=== PATIENT | female | born 1970 | race Caucasian/White ===

== ENCOUNTER 2016-12-27 19:20 | Emergency (ER) | payer MEDICAID ==
--- NOTE | 2016-12-27 19:45 | Emergency Department Record ---
History of Present Illness - General Chief complaint: Flu Like Symptoms Stated complaint: COUGH,BODY ACHE Time Seen by Provider: 12/27/16 19:40 Source: Patient, Family Mode of Arrival: Ambulatory Limitations: No limitations - History of Present Illness Initial comments: 46 yo female presents with sore throat, cough, fever 100.9, congestion. The onset of the symptoms was today. No nausea, vomiting or diarrhea. She has aches all over as well. She is not a smoker. She did not have a flu shot. She has been exposed to many sick people throat her work at [employer]. PCP is Jackelyn Naik in the [facility]. She was sick 2 weeks ago with cough and congestion that resolved. Onset/Timin -: Hour(s) Location: Generalized Consistency: Constant Improves with: None Worsens with: None Associated Symptoms: Chest pain, Fever/chills, Headaches - Macy Coma Scale Eye Response: (4) Open spontaneously Motor Response: (6) Obeys commands Verbal Response: (5) Oriented Macy Total: 15 - Symptoms of Stroke Symptoms of stroke: Dizziness - Related Data Previous Rx's Medication Instructions Recorded Clindamycin HCl [Cleocin HCl] 300 mg PO TID #21 capsule 12/27/16 Allergies Allergy/AdvReac Type Severity Reaction Status Date / Time Penicillins Allergy Unknown PT UNSURE Verified 12/27/16 19:33 OF REACTION bee stings AdvReac Intermediate SWELLING Uncoded 12/27/16 19:33 (GENERAL) Travel Screening - Travel/Exposure Within Last 30 Days Have you traveled within the last 30 days?: No - Travel/Exposure Within Last Year Have you traveled outside the [place] in the last year?: No - Additonal Travel Details Have you been exposed to anyone with a communicable illness?: No - Travel Symptoms Symptom Screening: None Review of Systems Constitutional: Reports: Chills, Fever, Malaise Eyes: Denies: Eye discharge, Eye pain, Photophobia, Vision change ENT: Reports: Congestion, Throat pain. Denies: Ear pain Respiratory: Reports: Cough. Denies: Hemoptysis, Stridor, Wheezes Cardiovascular: Reports: Other (body aches all over). Denies: Dyspnea on exertion, Edema, Palpitations, Syncope Endocrine: Reports: Fatigue Gastrointestinal: Reports: As per HPI. Denies: Abdominal pain, Constipation, Diarrhea, Hematemesis, Hematochezia, Melena, Nausea, Vomiting Genitourinary: Denies: Dysuria, Frequency, Urgency Musculoskeletal: Reports: Arthralgia, Myalgia. Denies: Joint swelling, Neck pain Skin: Denies: Bruising, Change in color, Rash Neurological: Reports: Headache. Denies: Confusion Psychiatric: Denies: Anxiety Hematological/Lymphatic: Denies: Blood Clots, Easy bleeding, Easy bruising, Swollen glands Past Medical History - SOCIAL HISTORY Smoking Status: Never smoker - RESPIRATORY Hx Respiratory Disorders: No - CARDIOVASCULAR Hx Cardio Disorders: Yes Hx Hypertension: Yes - NEURO Hx Neuro Disorders: Yes Hx Headaches: Yes (Migraines) - GI Hx GI Disorders: No - Hx Genitourinary Disorders: No - ENDOCRINE Hx Endocrine Disorders: No - MUSCULOSKELETAL Hx Musculoskeletal Disorders: No - PSYCH Hx Psych Problems: No - HEMATOLOGY/ONCOLOGY Hx Hematology/Oncology Disorders: No Family Medical History Any Significant Family History?: No Hx Cancer: Father, Mother, Grandparents Hx Heart Disease: Father, Grandparents Physical Exam - General General Appearance: Alert, Oriented x3, Cooperative, No acute distress Limitations: No limitations - Head Head exam: Normal inspection - Eye Eye exam: Normal appearance, PERRL. negative: Conjunctival injection, Periorbital swelling - ENT ENT exam: Mucous membranes moist, TM's normal bilaterally. negative: Normal exam, Normal orophraynx Ear exam: Normal external inspection. negative: External canal tenderness Nasal Exam: Discharge (greenish) Mouth exam: Normal external inspection, Tongue normal Teeth exam: Normal inspection. negative: Dental caries Throat exam: Tonsillar erythema, Tonsillomegaly. negative: Normal inspection, Tonsillar exudate, R peritonsillar mass, L peritonsillar mass - Neck Neck exam: Normal inspection, Full ROM, Lymphadenopathy (anterior upper cervical , tender but small soft and mobile), Tenderness. negative: Meningismus - Respiratory Respiratory exam: Normal lung sounds bilaterally. negative: Respiratory distress - Cardiovascular Cardiovascular Exam: Regular rate, Normal rhythm, Normal heart sounds - GI/Abdominal GI/Abdominal exam: Soft. negative: Distended, Guarding, Rigid - Rectal Rectal exam: Deferred - exam: Deferred - Extremities Extremities exam: Normal inspection, Full ROM, Normal capillary refill. negative: Tenderness - Back Back exam: Reports: Normal inspection, Full ROM. Denies: CVA tenderness (R), CVA tenderness (L), Muscle spasm, Rash noted, Tenderness - Neurological Neurological exam: Alert, Normal gait, Oriented X3 - Psychiatric Psychiatric exam: Normal affect, Normal mood - Skin Skin exam: Dry, Intact, Normal color, Warm. negative: Abrasion, Cyanosis, Diaphoretic, Erythema Course Vital Signs 12/27/16 19:27 Temperature 98.7 F Pulse Rate [ 113 H Pulse Ox Probe] Respiratory 20 Rate Blood Pressure 144/76 [Left Arm] Pulse Ox 97 - Reevaluation(s) Reevaluation #1: The Influenza and Strep were negative With her 100.9 fever prior to arrival, erthematous and swollen tonsils she will be treated for tonsillitis 12/27/16 19:58 Reevaluation #2: Note: The patient requests no narcotics 12/27/16 20:02 Disposition Disposition: Discharge Clinical Impression: Tonsillitis Disposition: Home, Self-Care Condition: (1) Good Instructions: Tonsillitis (ED) Additional Instructions: Rest and stay well hydrated Stay home if you have a fever Clindamycin 3 times daily for one week Call your doctor for a recheck in the next 2 days if not better Return to the ER if worse Tylenol as directed for your body aches. Prescriptions: Clindamycin HCl [Cleocin HCl] 300 mg PO TID #21 capsule Forms: Patient Portal Access Time of Disposition: 20:03
[2016-12-27 19:53] LABS: STREP A SCREEN NEGATIVE (NEGATIVE)
[2016-12-27] MEDS ORDERED: DEXAMETHASONE SOD PHOSPHATE 10MG/ML VIAL PO ONE (19:53)
[2016-12-27] MEDS ORDERED: ACETAMINOPHEN 500 MG TABLET PO ONE (19:54)
[2016-12-27 19:55] LABS: INFLUENZA A NEGATIVE (NEGATIVE); INFLUENZA B NEGATIVE (NEGATIVE)
[2016-12-27] MEDS ORDERED: CLINDAMYCIN 150 MG CAP PO ONE (19:59)
== END 2016-12-27 20:14 | disposition home or self-care (01) ==
LOC: ER 19:20
DX: J03.90 Acute tonsillitis, unspecified (principal); R42 Dizziness and giddiness
CPT/HCPCS: 87880; 87400; J1100; 99282

== ENCOUNTER 2017-06-22 18:21 | Emergency (ER) | payer MEDICAID ==
[2017-06-22] MEDS ORDERED: ONDANSETRON HCL IV 4 MG/2 ML VIAL IVP ONE (18:51)
--- NOTE | 2017-06-22 18:56 | Emergency Department Record ---
History of Present Illness - General Chief Complaint: Abdominal Pain Stated Complaint: ABD PAIN/FEVER/NAUSEA Source: Patient Mode of Arrival: Ambulatory Limitations: No limitations - History of Present Illness Initial Comments: 46 yo female presents to ED with a CC of fever, dysuria, nausea, and mild, diffuse abdominal pain symptoms. Patient reports that her symptoms have been intermittent for the past several days, reports that she has a "gallstone the size of a ping-pong ball" that she is going to see Dr. Poon for next week. Patient denies cough, sore throat, or significant flank pain symptoms. Patient denies health problems other than HTN. MD Complaint: Abdominal pain Onset/Timin -: Days(s) Location: Diffuse Severity: Moderate Quality: Dull, Other Consistency: Constant Improves With: Nothing Worsens With: Nothing Associated Symptoms: Dysuria, Nausea - Related Data Patient : No Previous Rx's Medication Instructions Recorded Azithromycin [Zithromax] 250 mg PO DAILY #4 tab 06/22/17 Allergies Allergy/AdvReac Type Severity Reaction Status Date / Time Penicillins Allergy Unknown PT UNSURE Verified 06/22/17 18:35 OF REACTION bee stings AdvReac Intermediate SWELLING Uncoded 12/27/16 19:33 (GENERAL) opioids AdvReac pt states Uncoded 12/27/16 20:04 recovering addict. Travel Screening - Travel/Exposure Within Last 30 Days Have you traveled within the last 30 days?: No - Travel/Exposure Within Last Year Have you traveled outside the [place] in the last year?: No - Additonal Travel Details Have you been exposed to anyone with a communicable illness?: No - Travel Symptoms Symptom Screening: None Review of Systems Constitutional: Reports: Chills, Fever. Denies: Malaise, Night sweats Eyes: Denies: Eye discharge, Eye pain ENT: Denies: Congestion, Ear pain, Epistaxis Respiratory: Denies: Cough, Dyspnea Cardiovascular: Denies: Chest pain, Dyspnea on exertion Endocrine: Denies: Fatigue, Heat or cold intolerance Gastrointestinal: Reports: Abdominal pain, Nausea. Denies: Constipation, Vomiting Genitourinary: Reports: Dysuria, Frequency. Denies: Incontinence, Retention Musculoskeletal: Denies: Arthralgia, Back pain Skin: Denies: Bruising Neurological: Denies: Abnormal gait, Confusion, Headache Psychiatric: Denies: Anxiety Hematological/Lymphatic: Denies: Anemia, Blood Clots Past Medical History - SOCIAL HISTORY Smoking Status: Former smoker Alcohol Use: None Drug Use: None - RESPIRATORY Hx Respiratory Disorders: No - CARDIOVASCULAR Hx Cardio Disorders: Yes Hx Hypertension: Yes - NEURO Hx Neuro Disorders: Yes Hx Headaches: Yes (Migraines) - GI Hx GI Disorders: No - Hx Genitourinary Disorders: No - ENDOCRINE Hx Endocrine Disorders: No - MUSCULOSKELETAL Hx Musculoskeletal Disorders: No - PSYCH Hx Psych Problems: No - HEMATOLOGY/ONCOLOGY Hx Hematology/Oncology Disorders: No Family Medical History Any Significant Family History?: Yes Hx Cancer: Father, Mother, Grandparents Hx Heart Disease: Father, Grandparents Physical Exam - General General Appearance: Alert, Oriented x3, Cooperative, Mild distress Limitations: No limitations - Head Head exam: Atraumatic, Normocephalic, Normal inspection Head exam detail: negative: Abrasion, Contusion, Blevins's sign, General tenderness, Hematoma, Laceration - Eye Eye exam: Normal appearance. negative: Conjunctival injection, Periorbital swelling, Periorbital tenderness, Scleral icterus - ENT Ear exam: negative: Auricular hematoma, Auricular trauma Nasal Exam: negative: Active bleeding, Discharge, Dried blood, Foreign body Mouth exam: negative: Drooling, Laceration, Muffled voice, Tongue elevation - Neck Neck exam: Normal inspection. negative: Meningismus, Tenderness - Respiratory Respiratory exam: Normal lung sounds bilaterally. negative: Respiratory distress, Rhonchi, Stridor, Wheezes - Cardiovascular Cardiovascular Exam: Regular rate, Normal rhythm, Normal heart sounds - GI/Abdominal GI/Abdominal exam: Soft. negative: Distended, Rebound, Rigid, Tenderness - Rectal Rectal exam: Deferred - exam: Deferred - Extremities Extremities exam: Normal inspection. negative: Calf tenderness, Pedal edema, Tenderness - Back Back exam: Denies: CVA tenderness (R), CVA tenderness (L) - Neurological Neurological exam: Alert, Normal gait, Oriented X3 - Psychiatric Psychiatric exam: Normal affect, Normal mood - Skin Skin exam: Normal color. negative: Abrasion Type of lesion: negative: abrasion Course Vital Signs 06/22/17 18:37 Temperature 98.5 F Pulse Rate 102 H Respiratory 20 Rate Blood Pressure 140/61 Pulse Ox 98 - Reevaluation(s) Reevaluation #1: 08/22/17 19:36 Labs reviewed, AST/ALT mildly elevated (47/79), UA appears contaminated. Will obtain clean catch, patient is going to CT currently. Reevaluation #2: 06/22/17 20:25 CT Abdomen and Pelvis: Focal air-space disease left lung base, stable GB wall thickening without CBD dilatation present. Patient was updated on all results, will initiate treatment with Rocephin and Zithromax in the ED with outpatient treatment for CAP. Patient agrees with the plan as discussed. Medical Decision Making - Lab Data Result diagrams: 06/22/17 19:02 06/22/17 19:02 Disposition Disposition: Discharge Clinical Impression: CAP (community acquired pneumonia) Qualifiers: Laterality: left Lung location: lower lobe of lung Qualified Code(s): J18.1 - Lobar pneumonia, unspecified organism Disposition: Home, Self-Care Condition: (2) Stable Instructions: Community Acquired Pneumonia (ED) Additional Instructions: Return to ED if your symptoms worsen or if you have any concerns. Zithromax as directed. Follow-up with your family doctor in 3-5 days as directed. Prescriptions: Azithromycin [Zithromax] 250 mg PO DAILY #4 tab Forms: Patient Portal Access Time of Disposition: 20:28 Quality - Quality Measures Quality Measures: N/A - Blood Pressure Screening Does Patient Have Any of the Following: No Blood Pressure Classification: Hypertensive Reading Systolic Measurement: 140 Diastolic Measurement: 61 Screening for High Blood Pressure: < First Hypertensive BP, F/U Documented > [ [id number]] First Hypertensive Follow-up Interventions: Referral to alternative/primary care provider.
[2017-06-22] MEDS ORDERED: 0.9 % SODIUM CHLORIDE 1000ML 1,000 ML IV SCH (19:00)
[2017-06-22 19:15] LABS: BASO % 0.4 % (0-6); EOS % 1.9 % (0-6); GRAN % 66.5 % (47-80); HEMATOCRIT 40.7 % (35.0-47.0); HEMOGLOBIN 13.9 gm/dl (11.6-16.0); LYMPH % 22.2 % (16-45); MEAN CELL VOLUME 88.5 fl (81-97); MEAN CORPUSCULAR HEMOGLOBIN 30.2 pg (27-33); MEAN CORPUSCULAR HGB CONC 34.2 g/dl (32-36); MEAN PLATELET VOLUME 9.7 fl (7.4-10.4); PLATELET COUNT 249 K/uL (130-400); WHITE BLOOD COUNT W/O DIFF 7.9 K/uL (4.2-12.2)
[2017-06-22 19:35] LABS: ALB/GLOB RATIO 1.5 (1.1-1.8); ALBUMIN 4.8 gm/dL (3.5-5.0); ALKALINE PHOSPHATASE 106 U/L (38-126); ALT/SGPT 79 U/L (9-52); ANION GAP 9.3 (7-16); AST/SGOT 47 U/L (14-36); BILIRUBIN,TOTAL 0.69 mg/dL (0.2-1.3); BLOOD UREA NITROGEN 11 mg/dL (7-17); CARBON DIOXIDE 28.7 mmol/L (22-30); CREATININE 0.9 mg/dL (0.52-1.04); EST GLOMERULAR FILTRATION RATE > 60 ml/min; GLUCOSE,RANDOM 90 mg/dL (70-110); LIPASE 164 U/L (23-300); TOTAL PROTEIN 8.1 gm/dL (6.3-8.2)
[2017-06-22 20:08] LABS: URINE APPEARANCE CLEAR; URINE BILIRUBIN NEGATIVE (NEGATIVE); URINE BLOOD TRACE-I (NEGATIVE); URINE COLOR YELLOW; URINE GLUCOSE (UA) NEGATIVE (NEGATIVE); URINE KETONE NEGATIVE (NEGATIVE); URINE LEUKOCYTE ESTERASE NEGATIVE (NEGATIVE); URINE NITRITE NEGATIVE (NEGATIVE); URINE PROTEIN NEGATIVE (NEGATIVE); URINE UROBILINOGEN 0.2 E.U./dL (0.20 - 1.00)
[2017-06-22 20:16] LABS: URINE BACTERIA NONE SEEN; URINE EPITHELIAL CELLS 0 - 2 (FEW); URINE RBC 0 - 2 (NONE SEEN); URINE WBC 0 - 2 (0-2/hpf)
[2017-06-22] MEDS ORDERED: CEFTRIAXONE SODIUM 1 GM in 0.9 % SODIUM CHLORIDE 100ML 100 ML IVPB ONE (20:29)
[2017-06-22] MEDS ORDERED: ACETAMINOPHEN 500 MG TABLET PO ONE (20:33)
[2017-06-23] MEDS ORDERED: AZITHROMYCIN 500 MG TABLET PO SCH (10:00)
--- NOTE | 2017-06-24 07:16 | CT SCAN REPORT ---
DATE: 06/22/2017 at 1944. EXAM: CT SCAN OF THE ABDOMEN AND PELVIS WITH CONTRAST. HISTORY: Nausea, fever, and body aches. Stomach pain improving since Wednesday. TECHNIQUE: Contrast-enhanced helical CT examination of the abdomen and pelvis was performed including delayed images through the kidneys with 100 mL of Omnipaque 300 utilized. COMPARISON: Abdominal ultrasound dated 06/15/2017. CT urogram dated 04/08/2017. FINDINGS: New since the prior CT examination is patchy air space disease within the left infrahilar lung consistent with atelectasis or early infiltrate. The lung bases are otherwise clear, and there is no pleural or pericardial effusion. The heart is not enlarged. Mild, diffuse decreased density of the liver relative to the spleen is redemonstrated consistent with steatosis. No new suspicious focal hepatic abnormality. A very large calcified gallstone is present within the gallbladder body/neck measuring 2.8 cm in diameter. There may be a small amount of sludge more proximally, and there is borderline to mild wall thickening of the gallbladder. No pericholecystic fluid is, however, seen. Nor is there gross biliary ductal dilatation. The spleen, pancreas, and adrenal glands remain normal in appearance. The right kidney remains malrotated, likely on a congenital basis, and is slightly smaller than the left kidney. This is stable. No new renal mass. The right renal collecting system pelvis remains borderline prominent without caliectasis, likely developmental. No new intra-abdominal nor retroperitoneal lymphadenopathy is seen. There is minor atherosclerosis of the abdominal aorta without aneurysmal dilatation. The vasculature is otherwise unremarkable. The uterus is surgically absent. No new pelvic mass, lymphadenopathy, or free pelvic fluid is seen. No intrinsic urinary bladder abnormality is identified; though evaluation is somewhat limited by lack of distension. Evaluation of bowel is somewhat limited by lack of oral contrast utilization. Occasional diverticula are noted within the left colon without evidence of diverticulitis. No gross bowel dilatation nor bowel wall thickening is seen. The appendix is not visualized, though no inflammatory changes are noted in its expected location. No new lytic or blastic bone lesion. IMPRESSION: 1. NEW SINCE THE PRIOR CT EXAMINATION IS A SMALL AREA OF AIR SPACE DISEASE WITHIN THE MEDIAL LEFT LUNG BASE CONSISTENT WITH INFILTRATE OR ATELECTASIS. 2. LARGE CALCIFIED GALLSTONE REDEMONSTRATED WITH PROBABLE SLUDGE MORE PROXIMALLY IN THE GALLBLADDER LUMEN AND WITH BORDERLINE TO MILD WALL THICKENING. THIS IS NONSPECIFIC. THIS APPEARANCE HAS NOT GROSSLY CHANGED IN THE INTERVAL. 3. HEPATIC STEATOSIS. 4. MILD DIVERTICULOSIS OF THE LEFT COLON WITHOUT EVIDENCE OF DIVERTICULITIS. 5. STATUS POST CHOLECYSTECTOMY. 6. 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 JOB NUMBER: [id number] [facility]
== END 2017-06-22 21:24 | disposition home or self-care (01) ==
LOC: ER 18:21
DX: J18.1 Lobar pneumonia, unspecified organism (principal); R11.0 Nausea; R30.0 Dysuria; R10.9 Unspecified abdominal pain; I10 Essential (primary) hypertension; Z87.891 Personal history of nicotine dependence
CPT/HCPCS: 99284 ×2; 96365; 96375; 83690; 85025; 80053; 81001; 74177; Q9967; J2405; J7030

== ENCOUNTER 2017-07-12 06:56 | Day surgery (SDC) | payer MEDICAID ==
[~2017-07-12 06:56] MED LIST: ACETAMINOPHEN 1,000 MG/100 ML BTL IV ONE; FAMOTIDINE 20MG TABLET PO ONE; MECLIZINE 25 MG TABLET PO ONE; METOCLOPRAMIDE 10 MG TABLET PO ONE
[2017-07-12 07:32] LABS: BASO % 0.6 % (0-6); EOS % 2.8 % (0-6); GRAN % 55.2 % (47-80); HEMATOCRIT 39.9 % (35.0-47.0); HEMOGLOBIN 13.3 gm/dl (11.6-16.0); LYMPH % 30.9 % (16-45); MEAN CELL VOLUME 90.3 fl (81-97); MEAN CORPUSCULAR HEMOGLOBIN 30.1 pg (27-33); MEAN CORPUSCULAR HGB CONC 33.3 g/dl (32-36); MEAN PLATELET VOLUME 9.9 fl (7.4-10.4); MONO % 10.5 % (0-9); PLATELET COUNT 260 K/uL (130-400); RED BLOOD COUNT 4.42 M/uL (3.80-5.40); RED CELL DISTRIBUTION WIDTH 13.2 % (11.5-14.5); WHITE BLOOD COUNT W/O DIFF 7.1 K/uL (4.2-12.2)
[2017-07-12 07:40] LABS: ANION GAP 9.3 (7-16); BLOOD UREA NITROGEN 13 mg/dL (7-17); CARBON DIOXIDE 28.7 mmol/L (22-30); CREATININE 0.8 mg/dL (0.52-1.04); EST GLOMERULAR FILTRATION RATE > 60 ml/min; GLUCOSE,RANDOM 105 mg/dL (70-110)
[2017-07-12] MEDS ORDERED: ONDANSETRON HCL IV 4 MG/2 ML VIAL IVP ONE ×2 (14:00→14:27)
[2017-07-12] MEDS ORDERED: SEVOFLURANE 250 ML INH ONE (14:00)
[2017-07-12] MEDS ORDERED: PROPOFOL 10 MG/ML VIAL IV ONE (14:00)
[2017-07-12] MEDS ORDERED: DEXAMETHASONE 4 MG/ML 1ML VIAL IVP ONE (14:00)
[2017-07-12] MEDS ORDERED: SUGAMMADEX SODIUM 200 MG/2 ML VIAL IV ONE (14:00)
[2017-07-12] MEDS ORDERED: ROCURONIUM BROMIDE 50MG/5ML VIAL IV ONE (14:00)
[2017-07-12] MEDS ORDERED: KETOROLAC 30 MG/ML VIAL IVP ONE ×2 (14:00→14:27)
[2017-07-12] MEDS ORDERED: TRAMADOL HCL 50 MG TABLET PO ONE (14:27)
--- NOTE | 2017-07-15 08:57 | Operative Note ---
DATE OF SURGERY: 07/12/2017 Surgeon: Charlie Poon DO SHEET WRITER: Rafat PREOPERATIVE DIAGNOSIS: Cholelithiasis with cholecystitis. POSTOPERATIVE DIAGNOSIS: Chronic cholecystitis. OPERATION: Laparoscopic cholecystectomy. Indication: The patient is a 46-year-old female who is having ongoing right subcostal postprandial pain. Imaging studies were consistent with cholelithiasis. Her clinical history was that of recurrent biliary colic. We did discuss cholecystectomy. Risks, benefits, and alternatives were discussed. Risks include bleeding, infection, ductal injury, possible conversion to open, postoperative bile leak. She understood this fully. PROCEDURE: Therefore, after consent was signed and questions answered, she was taken to the operating room and placed in a supine position. General anesthesia was administered per the department of anesthesia. The patient's abdomen was prepped and draped in the usual sterile fashion. Adequate timeout was performed. She had received preoperative . SCDs were on her legs. At this time, the supraumbilical region was anesthetized with a total of 3 mL of 0.25% Sensorcaine with epinephrine. I elected to go in a supraumbilical position secondary to her infraumbilical laparotomy incision as well as her body habitus. A 2 cm incision was made. This was carried down to the anterior rectus fascia. This was incised. Dl clamps were placed on the fascial edges and brought up into the wound. Stay sutures of 0 Vicryl were placed. Posterior rectus sheath was identified and incised. The peritoneal cavity was entered bluntly. At this time, a 10 mm blunt Mikayla port was placed. Adequate pneumoperitoneum was established. Under direct visualization, additional 5 mm epigastric and two 5 mm right subcostal ports were placed. Reverse Trendelenburg was the position of choice. The gallbladder was identified and was very tense and distended, dilated and elongated. We were unable to grasp this with graspers. Therefore, to decompress the gallbladder of some thick gelatinous bilious material. At this time, further cephalad and lateral retraction were applied to the gallbladder. The hepatocystic triangle was thoroughly dissected out. There was noted to be fairly dense fibrosis, inflammatory changes but a very thickened gallbladder. Blunt dissection was mainly used. The distal half of the gallbladder was release from the cystic plate and elongated in a retrocystic window. There were only 2 structures remaining, which were the cystic duct and cystic artery. Each one was circumferentially dissected out in a 360-degree fashion. Excellent critical view of safety was obtained. The cystic artery was taken down with the Clinton harmonic and the cystic duct was triply clipped and cut in standard fashion. Gallbladder essentially peeled off the liver bed due to the inflammatory state. This was placed in an EndoCatch bag and brought up in the supraumbilical incision. It was noted to be full of stones. At this time, the right upper quadrant was rechecked. It was irrigated with approximately 1000 mL of sterile saline. No bleeding was noted. No bile leak noted. No bowel injury noted. The patient was leveled out. The pneumoperitoneum was released. All ports were removed. The fascia was closed with 0 Vicryl in a [id number] fashion. The skin of all 4 ports was closed with 4-0 Vicryl. She was taken to the recovery room in satisfactory condition. FINDINGS AT THE TIME OF SURGERY: Chronic cholecystitis. CC: Jackelyn BENTIEZ
== END 2017-07-12 11:30 | disposition home or self-care (01) ==
LOC: SUR 06:56
PROVIDERS: ATTEND Surgery
DX: K80.10 Calculus of gallbladder with chronic cholecystitis without obstruction (principal); I10 Essential (primary) hypertension
CPT/HCPCS: 80048; 85027; 47562; 00790; J1885; J2405; J3490